=== PATIENT | female | born 2005 | race African-American/Black ===

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

== ENCOUNTER 2024-03-03 08:58 | Outpatient (REF) | payer OTHER, SELFPAY ==
[2024-03-06 15:34] LABS: TS Negative Control Passed; TS Panel A 0; TS Panel B 0; TS Positive Control Passed; TSpotTB Negative (Negative)
== END 2024-03-03 08:59 | disposition home or self-care (01) ==
LOC: HO.HHCL 08:58
PROVIDERS: Visit Provider Nurse Practitioner Primary Care
DX: Z11.1 Encounter for screening for respiratory tuberculosis (principal)
CPT/HCPCS: 36415; 86481

== ENCOUNTER 2024-08-09 16:37 | Outpatient (REF) | payer OTHER, SELFPAY ==
--- OUTSIDE RECORDS SUMMARY | 2024-08-09 17:58 | XMS_ITS | Encounter Summary ---
Author Organization [employer] Address [address] [facility] [address] [place] [address] Care Team Providers Care Electromechanical Assembly Technician Name Role Phone Lashawn Haney Primary Care Provider [phone] Reason for Visit * Reason Onset Date Comments Nurse Triage 08/09/2024 Encounter Details Date Type Department Care Team ([facility] st Contact Info) Description 08/09/2024 Telephone [facility] [address] [place] [address] Lashawn Haney ANP [address] [place] [address] Nurse Triage Social History Tobacco Use Types Packs/Day Years Used Date Smoking Tobacco: Never Passive Smoke Exposure: Never Smokeless Tobacco: Never Alcohol Use Standard Drinks/Week Comments Never 0 (1 standard drink = 0.6 oz pur e alcohol) Depression Answer Date Recorded Patient Health Questionnaire-9 Score 0 09/30/2023 Patient Health Questionnaire-9 Score 0 09/30/2023 Last PHQ-9: Questionnaire Data Not on file 0 09/30/2023 Housing Stability Answer Date Recorded What is your housing situation today? I have [address] 09/30/[address] you li ve. Do you have problems with any of the following? None of the above 09/30/2023 Food Insecurity Answer Date Recorded Within the past 12 months, y ou worried that your food would run out before you got money to buy more: Never True 09/30/2023 Within the past 12 months,th e food you bought just didn't last and you didn't have enough money to get more: Never True Transportation Answer Date Recorded In the past 12 months, has l ack of transportation kept you from medical appts, meetings, work or from getting things needed for daily living? No 09/30/2023 Utilities Answer Date Recorded In the past 12 months, has t he electric, gas, oil or water company threatened to shut off services in your home? No 09/30/2023 Depression Answer Date Recorded Patient Health Questionnaire-2 Score 0 09/30/2023 Comments No Sex and Gender Information Value Date Recorded Sex Assigned at Female 05/19/2022 10:19 AM EDT Legal Sex Female 10:19 AM EDT Gender Identity Choose not to disclose 10:19 AM EDT Sexual Orientation Choose not to disclose 2021 10:19 AM EDT documented as of this encounter Miscellaneous Notes * Telephone Encounter - Alda Storm RN - 08/09/2024 9:35 AM EST Call returned to Milo Ahmadi to triage below. Reports having vaginal discharge. No uti sx. Mild odor. No pelvic pain, nausea vomiting or fever. Pt denies any concern for STI. Sx onset was 3 days ago. PT advised of disposition, agrees to sick on site with CNM for exam. Protocol Used: Vaginal Discharge (Adult) Protocol-Based Disposition: See in Office or Video Visit within 3 Days Future Appointments Date Time Provider Department Center 08/09/2024 1:15 PM Mary Bragg CNM [facility] Insurance verified as active per Real Time Eligibility in [facility]. Positive Triage Question: * Symptoms of a yeast infection (i.e., itchy, white discharge, not bad smelling) and not improved > 3 days following Care Advice * All higher-acuity triage questions were negative Care Advice Discussed: * Reassurance and Education - Normal Vaginal Discharge * Reasons To Call Back - You become worse * Telephone Encounter - Jodi Yu - 08/09/2024 8:27 AM EST Symptom: Urine Symptoms (discharge) Outcome: Schedule a same-day appointment or talk to a nurse or provider today Reason: Caller denied all higher acuity questions The caller accepted this outcome. [phone] documented in this encounter Plan of Treatment Not on file documented as of this encounter Visit Diagnoses Not on filedocumented in this encounter Additional Health Concerns Assessment Noted Time PHQ-9 Depression Total Score: 0 09/30/19 24 2:31 PM EDT documented as of this encounter Care Teams Electromechanical Assembly Technician Relationship Specialty Start Date End Date Lashawn Haney ANP [address] [place] [phone] PCP - General Family Medicine 04/23/23 documented as of this encounter
--- OUTSIDE RECORDS SUMMARY | 2024-08-09 17:58 | XMS_ITS | Clinical Summary ---
Author Organization [email or web address] Address [address] [facility] [address] [place] [address] Care Team Providers Care Vertical Borer Name Role Phone Lashawn Haney LEATHA Primary Care Provider [phone] Allergies Active Allergy Reactions Criticality Noted Date Comments Cucurbita 10/22/2017 Pork Allergy 08/12/2022 Pumpkin Flavoring Agent (Non-Screening) 08/12/2022 Medications Occlusive Silicone Strips (KP Silicone Scar Therapy Gel) stripIndicatio ns:Abnormal scarring of skin 1 strip if needed each day (scarring). 8 strip 11 3 Active benzoyl peroxide 5 % external washIndication s:Mild acne 1 applic by topical route daily for acne 236 mL 1 4 Active clindamycin (Clindagel) 1 % gelIndications :Mild acne Apply topically Once daily. Must apply concomitantly with BP to prevent antimicrobial resistance 60 g 2 4 Active chlorhexidine (Peridex) 0.12 % solution SWISH AND SPIT WITH 15 ML IN THE MOUTH OR THROAT IF NEEDED IN THE MORNING, AT NOON, AND AT BEDTIME (PROPHYLAXIS) FOR UP TO 5 DAYS. 473 mL 4 Active tretinoin (Retin-A) 0.05 % creamIndicatio ns:Acne vulgaris Apply topically at bedtime. 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 Acne 10/22/2017 Encounters Date Type Department Care Team Description 08/09/2024 1:15 PM EST Office Visit [facility] [address] [place] [address] Mary Bragg, FRANCISCA Vaginal discharge (Primary Dx) 08/09/2024 Travel 08/09/2024 Telephone [facility] [address] [place], [place] [phone] Lashawn Haney ANP Nurse Triage 08/01/2024 Telephone [facility] [address] [place], [place] [phone] Ulises Segovia [place] September recall from Last 3 Months Immunizations Name Administration Dates Next Due DTaP 12/31/2007, 5,11/02/2004,03/01,2003 HPV 9-Valent 10/22/2017,05/10/2015 Hep A, ped/adol, 2 dose 05/06/2018,10/22/2017 Hep B, Adolescent or Pediatric 03/01/2004,2003,2003 Hib (HbOC) 12/31/2007, 5,03/01/2004,12/28,2003 IPV 12/31/2007, 5,02/29/2004,12/28,2003 Influenza injectable quadriv alent preservative free 09/02/2022,07/10/2020 MMR 12/31/2007,11/22/2004 Meningococcal MCV4P [id number]-135 09/11/2020,05/10/20 15 Pneumococcal Conjugate PCV 7 08/18/2005,06/18/20 05 Tdap 05/10/2015 Varicella 12/31/2007,03/21/2005 Social History Tobacco Use Types Packs/Day Years Used Date Smoking Tobacco: Never Passive Smoke Exposure: Never Smokeless Tobacco: Never Tobacco Cessation:Counseling Given: Not Answered Alcohol Use Standard Drinks/Week Comments Never 0 [...] not to disclose 2021 10:19 AM EDT Last Filed Vital Signs Vital Sign Reading Time Taken Comments Blood Pressure 120/83 08/09/2024 1:31 PM EST Pulse 99 08/09/2024 1:31 PM EST Temperature 36.4 ??C (97.6 ??F) 08/09/2024 1:31 PM ES T Respiratory Rate 20 08/09/2024 1:31 PM EST Oxygen Saturation 99% 08/09/2024 1:31 PM EST Inhaled Oxygen Concentration - - Weight 67 kg (147 lb 12.8 oz) 08/09/2024 1:31 PM EST Height 160 cm (5' 3 ) 08/09/2024 1:31 PM EST Body Mass Index 26.18 08/09/2024 1:31 PM EST Plan of Treatment Health Maintenance Due Date Last Done Comments Chlamydia and Gonorrhea Screening 2003 HIV Screening 2003 Alcohol/Substance Use Screening 2015 Hepatitis C Screening 2021 Dental Oral Exam 02/09/2023 08/11/2022 Dental Prophylaxis 02/09/2023 08/11/2022 Dental X-Ray: Bitewings 08/12/2023 08/11/2022 COVID-19 Vaccine ( season) 2024 Influenza Vaccine (#1) 2024 09/02/2022, 2019 Depression Screening 09/29/2024 09/30/2023, 09/30/19 24 SDOH Screening 09/29/2024 09/30/2023 Family Planning (PISQ) 02/02/2025 02/03/2024 DTaP/Tdap/Td Vaccines (7 - Td or Tdap) 05/10/2025 05/10/2015, 12/31/2007, 03/07/2005, Additional history exists Tobacco Screening 08/09/2025 08/09/2024 Dental X-Ray: Full Mouth 05/16/2026 05/15/2023 Zoster Vaccines (1 of 2) 2053 RSV Patients and Patients Aged 60 years or older (1 - 1-dose 75+ series) 2078 Hepatitis B Vaccines Completed 03/01/2004, 2003, 2003 Pneumococcal Vaccine: Pediatrics (0 to 5 Years) and At-Risk Patients (6 to 64 Years) Aged Out 08/18/2005, 06/18/2005 No longer eligibl e based on patient's age to complete this topic HIB Vaccines Completed 12/31/2007, 05/22, 03/01/2004, Additional history exists IPV Vaccines Completed 12/31/2007, 02/17, 02/29/2004, Additional history exists HPV Vaccines Completed 10/22/2017, 05/10/2015 Hepatitis A Vaccines Completed 05/06/2018, 10/23/19 18 Meningococcal Vaccine Completed 09/11/2020, 015 RSV under 20 months Aged Out No longe r eligible based on patient's age to complete this topic Rotavirus Vaccines Aged Out No longer eligible based on patient's age to complete this topic Procedures Procedure Name Priority Date/Time Associated Diagnosis Comments POCT WET MOUNT/KATLYN Routine 08/09/2024 2: 41 PM EST Vaginal discharge PANORAMIC RADIOGRAPHIC IMAGE Routine 05/15/2023 1:00 PM EDT PERIODIC ORAL EVALUATION - ESTABLISHED PATIENT Routine 08/11/2022 3:00 PM EST Full PROPHYLAXIS - ADULT Routine 08/11/2022 2:00 PM EST BITEWINGS - 4 RADIOGRAPHIC IMAGES Routine 08/11/2022 2:00 PM EST from Last 3 Months or Most Recently Relevant to Health Maintenance Results * POCT fern test, vaginal fluid manually resulted (08/09/2024 2:41 PM EST) KATLYN Prep Negative Comment:pH 4.5, neg whiff, n eg clue, neg trich, neg yeast, neg wbc Vaginal Fluid 08/09/2024 2:4 1 PM EST Impressions Mary Bragg CNM - 08/09/2024 2:41 PM EST No obvious vaginitis Mary Bragg CNM POINT OF CARE TEST ENTER/ EDIT ORDERABLES Final Result from Last 3 Months Insurance [employer] DENTAL - [place] PARTIAL (MEDICAID) [address] [place] [id number] [place] [address] Care Teams Vertical Borer Relationship Specialty Start Date End Date Lashawn Haney ANP [address] [place] [phone] PCP - General Family Medicine 04/23/23
--- OUTSIDE RECORDS SUMMARY | 2024-08-09 17:58 | XMS_ITS | Encounter Summary ---
Author Organization [employer] Address [address] [facility] 7t [place] [address] Care Team Providers Care Table Operator Name Role Phone Medina Lashawn ZHANG Primary Care Provider [phone] Reason for Visit * Reason Comments Gynecologic Exam Encounter Details Date Type Department Care Team ([facility] Contact Info) Description 08/09/2024 1:15 PM EST Office Visit [facility] MEDICINE [address] [place] [address] Mary Bragg CN [address] [place] [address] Vaginal discharge (Primary Dx) Social History Tobacco Use Types Packs/Day Years [...] AM EDT documented as of this encounter Last Filed Vital Signs Vital Sign Reading [...] Mass Index 26.18 08/09/2024 1:31 PM EST documented in this encounter Progress Notes * Mary Bragg CNM - 08/09/2024 1:15 PM EST Subjective Patient ID: Milo Ahmadi is a 18 y.o. adult who presents for vaginal symptoms Treated for yeast 01/2024. Last sexually active 05/2024. Had neg Gonorrhea/Chlamydia/trichomonas testing after that. Notes some vaginal discharge recently, no itch/odor, no urinary symptoms. Not planning in the next year, no current partner. Has used new body products recently. Review of Systems Constitutional: Negative for chills and fever. Genitourinary: Positive for vaginal discharge. Negative for dysuria, menstrual problem, pelvic pain, vaginal bleeding and vaginal pain. Objective BP 120/83 (BP Location: Left arm, Patient Position: Sitting, BP Cuff Size: Adult) Pulse 99 Temp97.6 ??F (36.4 ??C) (Temporal) Resp 20 Ht 5' 3 (1.6 m) Wt 147 lb 12.8 oz (67 kg) LMP 08/02/2024 (Exact Date) SpO2 99% BMI 26.18 kg/m?? Physical Exam Constitutional: Appearance: Normal appearance. Genitourinary: General: Normal vulva. Labia: Right: No rash, tenderness, lesion or injury. Left: No rash, tenderness, lesion or injury. Vagina: Normal. No signs of injury and foreign body. No vaginal discharge, erythema, tenderness, bleeding, lesions or prolapsed vaginal coyne. Cervix: No discharge, friability, lesion, erythema or cervical bleeding. Comments: Bimanual deferred Neurological: Mental Status: [place] is alert. Psychiatric: Mood and Affect: Mood normal. Behavior: Behavior normal. Assessment/Plan Diagnoses and all orders for this visit: Vaginal discharge - Bacterial Vaginosis Panel - POCT fern test, vaginal fluid manually resulted No obvious vaginitis on wet mount. Will send bacterial vaginosis swab and contact with results. Aware of EC/condoms, may contact office any time if interested in control or STI testing. Pap at 21. documented in this encounter Plan of Treatment Scheduled Orders Name Type Priority Associated Diagnoses Orde r Schedule Bacterial Vaginosis Panel Microbiology Routine Vaginal discharge Ordered: 08/09/2024 documented as of this encounter Procedures Procedure Name Priority Date/Time Associated Diagnosis Comments POCT WET MOUNT/KATLYN Routine 08/09/2024 2: 41 PM EST Vaginal discharge documented in this encounter Results * POCT fern test, vaginal fluid manually resulted (08/09/2024 2:41 PM EST) KATLYN Prep Negative Comment:pH 4.5, neg whiff, n eg clue, neg trich, neg yeast, neg wbc Vaginal Fluid 08/09/2024 2:4 1 PM EST Impressions Mary Bragg CNM - 08/09/2024 2:41 PM EST No obvious vaginitis Mary Bragg CNM POINT OF CARE TEST ENTER/ EDIT ORDERABLES Final Result documented in this encounter Visit Diagnoses Diagnosis Vaginal discharge- Primary Leukorrhea, not specified as infective documented in this encounter Additional Health Concerns Assessment Noted Time PHQ-9 Depression Total Score: 0 09/30/19 24 2:31 PM EDT documented as of this encounter Care Teams Table Operator Relationship Specialty Start Date End Date Lashawn Haney ANP [address] [place] [address] PCP - General Family Medicine 04/23/23 documented as of this encounter
--- OUTSIDE RECORDS SUMMARY | 2024-08-09 17:58 | XMS_ITS | Encounter Summary ---
Author Organization [employer] Address [address] [facility] 7t [place] [address] Care Team Providers Care Art Display Maker Name Role Phone Medina Lashawn ZHANG Primary Care Provider [phone] Reason for Visit * Reason Comments Med Refill Encounter Details Date Type Department Care Team ([facility] st Contact Info) Description 12/07/2023 Refill [facility] ADULT DENTAL [address] [place] [address] Naun Mcdonald, DMD [address] [place] [address] Social History Tobacco Use Types Packs/Day Years Used Date Smoking Tobacco: Never Passive Smoke Exposure: Never Smokeless Tobacco: Never Depression Answer Date Recorded Patient Health Questionnaire-9 [...] Patient Health Questionnaire-2 Score 0 09/30/2023 Comments Unknown Sex and Gender Information Value Date Recorded Sex Assigned at Female 05/19/2022 10:19 AM EDT Legal Sex Female 10:19 AM EDT Gender Identity Choose not to disclose 10:19 AM EDT Sexual Orientation Choose not to disclose 2021 10:19 AM EDT documented as of this encounter Miscellaneous Notes * Telephone Encounter - Naun Mcdonald DMD - 12/07/2023 2:22 PM EDT Approving, but needs appt for additional refills. documented in this encounter Plan of Treatment Not on file documented as of this encounter Visit Diagnoses Not on filedocumented in this encounter Additional Health Concerns Assessment Noted Time PHQ-9 Depression Total Score: 0 09/30/19 24 2:31 PM EDT documented as of this encounter Care Teams Art Display Maker Relationship Specialty Start Date End Date Lashawn Haney ANP [address] [place] [address] PCP - General Family Medicine 04/23/23 documented as of this encounter
--- OUTSIDE RECORDS SUMMARY | 2024-08-09 17:58 | XMS_ITS | Encounter Summary ---
Author Organization [employer] Address [address] [facility] [address] [address] [place] [address] Care Team Providers Care Retail Services Professional Name Role Phone Lashawn Haney LEATHA Primary Care Provider [phone] Encounter Details Date Type Department Care Team (Latest Contact Info) Description 08/09/2024 Travel Social History Tobacco Use Types Packs/Day Years [...] AM EDT documented as of this encounter Plan of Treatment Not on file documented as of this encounter Visit Diagnoses Not on filedocumented in this encounter Additional Health Concerns Assessment Noted Time PHQ-9 Depression Total Score: 0 09/30/19 24 2:31 PM EDT documented as of this encounter Care Teams Retail Services Professional Relationship Specialty Start Date End Date Lashawn Haney ANP [address] [place] [id number] PCP - General Family Medicine 04/23/23 documented as of this encounter
--- OUTSIDE RECORDS SUMMARY | 2024-08-09 17:58 | XMS_ITS | Encounter Summary ---
Author Organization [employer] Address [address] [facility] 7[address] [place] [address] Care Team Providers Care Chief Engineer'S Helper Name Role Phone Lashawn Haney LEATHA Primary Care Provider [phone] Reason for Visit * Reason Onset Date Comments September recall 08/01/2024 Encounter Details Date Type Department Care Team ([facility] st Contact Info) Description 08/01/2024 Telephone [facility] MEDICINE [address] [place] [address] Ulises Segovia [place] September recall Social History Tobacco Use Types Packs/Day Years [...] encounter Miscellaneous Notes * Telephone Encounter - Ulises Segovia [place] - 08/01/2024 4:17 PM EST T/C to pt to schedule a recall pe due after 09/29/24. No answer LVM to call clinic to schedule appt.Mailed recall letter. documented in this encounter Plan of Treatment Not on file documented as of this encounter Visit Diagnoses Not on filedocumented in this encounter Additional Health Concerns Assessment Noted Time PHQ-9 Depression Total Score: 0 09/30/19 24 2:31 PM EDT documented as of this encounter Care Teams Chief Engineer'S Helper Relationship Specialty Start Date End Date Lashawn Haney ANP [address] [place] [address] PCP - General Family Medicine 04/23/23 documented as of this encounter
--- OUTSIDE RECORDS SUMMARY | 2024-08-09 17:58 | XMS_ITS | Encounter Summary ---
Author Organization [employer] Address [address] [facility] 7t [place] [address] Care Team Providers Care Machining Associate Name Role Phone Lashawn Haney Primary Care Provider Encounter Details Date Type Department Care Team ([facility] st Contact Info) Description 02/01/2024 Telephone [facility] MEDICINE [address] [place] [address] Lashawn Haney ANP [address] [place] [address] Social History Tobacco Use Types Packs/Day Years [...] documented as of this encounter Care Teams Machining Associate Relationship Specialty Start Date End Date Lashawn Haney ANP [address] [place] [id number] PCP - General Family Medicine 04/23/23 documented as of this encounter
[2024-08-10 13:46] LABS: Bacterial Vaginosis PCR NEGATIVE (Negative); Candida Group PCR DETECTED (Not Detect); Candida glab krusei PCR NOT DETECTED (Not Detect); Trichomonas vaginalis PCR NOT DETECTED (Not Detect)
== END 2024-08-09 16:38 | disposition home or self-care (01) ==
LOC: HO.HHCLNP 16:37
PROVIDERS: Visit Provider Advanced Practice Midwife
DX: N89.8 Other specified noninflammatory disorders of vagina (principal)
CPT/HCPCS: 81515

== ENCOUNTER 2025-02-09 12:05 | Outpatient (REF) | payer OTHER, SELFPAY ==
--- OUTSIDE RECORDS SUMMARY | 2025-02-09 12:42 | XMS_ITS | Clinical Summary ---
Author Organization [employer] Address [address] [facility] 7t [place] [address] Care Team Providers Care Barkeep Name Role Phone Lashawn Haney LEATHA Primary Care Provider [phone] Allergies Active Allergy Reactions Criticality Noted Date Comments Cucurbita 10/22/2017 Pork Allergy 08/12/2022 Pumpkin Flavoring Agent (Non-Screening) 08/12/2022 Medications Occlusive Silicone Strips (KP Silicone Scar Therapy Gel) stripIndicatio ns:Abnormal scarring of skin 1 strip if needed each day (scarring). 8 strip 11 3 Active Additional Information Patient not taking.Reason: pt states not taking, Reported on 01/09/2025 benzoyl peroxide 5 % external washIndication s:Mild acne 1 applic by topical route daily for acne 236 mL 1 4 Active Additional Information Patient not taking.Reason: pt states not taking, Reported on 01/09/2025 clindamycin (Clindagel) 1 % gelIndications :Mild acne Apply topically Once daily. Must apply concomitantly with BP to prevent antimicrobial resistance 60 g 2 4 Active Additional Information Patient not taking.Reason: pt states not taking, Reported on 01/09/2025 chlorhexidine (Peridex) 0.12 % solution SWISH AND SPIT WITH 15 ML IN THE MOUTH OR THROAT IF NEEDED IN THE MORNING, AT NOON, AND AT BEDTIME (PROPHYLAXIS) FOR UP TO 5 DAYS. 473 mL 4 Active Additional Information Patient not taking.Reason: pt states not taking, Reported on 01/09/2025 fluconazole (Diflucan) 150 MG tabletIndicati ons:Radha vaginitis Take 1 tablet (150 mg) by mouth 1 (one) time for 1 dose. 1 tablet 5 02/10/20 25 Active Active Problems Problem Noted Date Diagnosed Date Radha vaginitis 02/09/2025 Assessment & Plan (02/09/2025 11:43 AM EDT): KATLYN positive Pt with c/o white vaginal discharge Plan: Diflucan Sent also GC Chlamydia abd BV panel Blood in urine 02/09/2025 Assessment & Plan (02/09/2025 11:49 AM EDT): Pt tells me she is awaiting her period Pt to have a repeat next time when she sees her PCP Dental caries 01/09/2025 Split ear lobe 08/12/2022 Acne 10/22/2017 Encounters Date Type Department Care Team Description 02/09/2025 10:30 AM EDT Office Visit [facility] MEDICINE [address] [place] [id number] Maldonado Roy MD Radha vaginitis (Primary Dx); Routine physical examination; Other microscopic hematuria 02/09/2025 Travel 02/08/2025 Telephone [facility] [address] [place] [address] Dulce Lockett MA 02/02/2025 9:00 AM EDT Office Visit [facility] ADULT DENTAL [address] [place] [address] Naun Mcdonald DMD 02/02/2025 Patient Outreach [facility] [address] [place] [address] Lashawn Haney ANP Pre-visit Planning (SDOH will need to be completed in office. ) 01/09/2025 2:00 PM EDT Office Visit [facility] ADULT DENT[facility] [address] [place] [address] Shilpa Asher Dental caries (Primary Dx); Dental plaque from Last 3 Months Immunizations Immunization Administration Dates Next Due DTaP 12/31/2007, 5,11/02/2004,03/01,2003 [...] Date Recorded Patient Health Questionnaire-9 Score 0 02/09/2025 Patient Health Questionnaire-9 Score 0 02/09/2025 Last PHQ-9: Questionnaire Data Not on file 0 02/09/2025 Housing Stability Answer Date Recorded What is your housing situation today? I have [facility] 02/09/[address] you li ve. Do you have problems with any of the following? None of the above 02/09/2025 Food Insecurity Answer Date Recorded Within the past 12 months, y ou worried that your food would run out before you got money to buy more: Never True 02/09/2025 Within the past 12 months,th e food you bought just didn't last and you didn't have enough money to get more: Never True Transportation Answer Date Recorded In the past 12 months, has l ack of transportation kept you from medical appts, meetings, work or from getting things needed for daily living? No 02/09/2025 Utilities Answer Date Recorded In the past 12 months, has t he electric, gas, oil or water [employer] threatened to shut off services in your home? No 02/09/2025 Depression Answer Date Recorded Patient Health Questionnaire-2 Score 0 02/09/2025 Internet Access Answer Date Recorded Internet Access Q1 Yes 02/09/2025 Internet Access Q2 Not on file 02/09/2025 Comments No Sex and Gender Information Value Date Recorded Sex Assigned at Female 05/19/2022 10:19 AM EDT Legal Sex Female 10:19 AM EDT Gender Identity Choose not to disclose 10:19 AM EDT Sexual Orientation Choose not to disclose 2021 10:19 AM EDT Last Filed Vital Signs Vital Sign Reading Time Taken Comments Blood Pressure 118/78 02/09/2025 10:49 AM EDT Pulse 93 02/09/2025 10:49 AM EDT Temperature 37.2 C (98.9 F) 02/09/2025 10:49 AM EDT Respiratory Rate 20 02/09/2025 10:49 AM EDT Oxygen Saturation 99% 02/09/2025 10:49 AM EDT Inhaled Oxygen Concentration - - Weight 63 kg (139 lb) 02/09/2025 10:49 AM EDT Height 160 cm (5' 3 ) 02/09/2025 10:49 AM EDT Body Mass Index 24.62 02/09/2025 10:49 AM EDT Plan of Treatment Upcoming Encounters Date Type Department Care Team (Late st Contact Info) Description 07/17/2025 3:00 PM EST Office Visit [facility] ADULT DENTAL [address] [place] [address] Lb, Shilpa [address] [place] [address] Health Maintenance Due Date Last Done Comments Chlamydia and Gonorrhea Screening 2003 HIV Screening 2003 Family Planning (PISQ) 2018 Meningococcal B Vaccine (1 of 2 - Standard) 2019 Hepatitis C Screening 2021 COVID-19 Vaccine (1 - season) 2024 Pap Smear 2024 Influenza Vaccine (#1) 2025 09/02/2022, 2019 DTaP/Tdap/Td Vaccines (7 - Td or Tdap) 05/10/2025 05/10/2015, 12/31/2007, 03/07/2005, Additional history exists Dental Oral Exam 07/12/2025 01/09/2025, 08/11/2022 Dental Prophylaxis 07/12/2025 01/09/2025, 08/11/2022 Dental X-Ray: Bitewings 01/10/2026 01/09/2025, 08/11 Tobacco Screening 02/02/2026 02/02/2025 Alcohol/Substance Use Screening 02/09/2026 02/09/2025 Depression Screening 02/09/2026 02/09/2025, 02/10/20 25 Disability Screening 02/09/2026 02/09/2025 SDOH Screening 02/09/2026 02/09/2025 Dental X-Ray: Full Mouth 05/16/2026 05/15/2023 Zoster Vaccines (1 of 2) 2053 RSV Patients and Patients Aged 60 years or older (1 - 1-dose 75+ series) 2078 Hepatitis B Vaccines Completed 03/01/2004, 2003, 2003 Pneumococcal Vaccine: Pediatrics (0 to 5 Years) and At-Risk Patients (6 to 49) Years Aged Out 08/18/2005, 06/18/2005 No longer eligibl [...] Name Priority Date/Time Associated Diagnosis Comments POCT GLYCATED HEMOGLOBIN, TOTAL Routine 02/09/2025 11:50 AM EDT Routine physical examination 18 O RESIN-BASED COMPOSITE - 1 SURF, POSTERIOR Routine 02/02/2025 9:00 AM EDT PERIODIC ORAL EVALUATION - ESTABLISHED PATIENT Routine 01/09/2025 2:00 PM EDT INTRAORAL - PERIAPICAL EACH ADDITIONAL RADIOGRAPHIC IMAGE Routine 01/09/2025 2:00 PM EDT Dental caries Dental plaque INTRAORAL - PERIAPICAL FIRST RADIOGRAPHIC IMAGE Routine 01/09/2025 2:00 PM EDT Dental caries Dental plaque ORAL HYGIENE INSTRUCTIONS Routine 01/09/2025 2:00 PM EDT Dental caries Dental plaque BITEWINGS - 4 RADIOGRAPHIC IMAGES Routine 01/09/2025 2:00 PM EDT Dental caries Dental plaque Full PROPHYLAXIS - ADULT Routine 01/09/2025 2:00 PM EDT Dental caries Dental plaque PANORAMIC RADIOGRAPHIC IMAGE Routine 05/15/2023 1:00 PM EDT from Last 3 Months or Most Recently Relevant to Health Maintenance Results * POCT A1C (02/09/2025 11:50 AM EDT) Hemoglobin A1C 5.1 4.0 - 5.7 % Blood 02/09/2025 11:5 0 AM EDT Maldonado Michael MD POINT OF CARE TEST EN TER/EDIT ORDERABLES Final Result from Last [address] [place] [address] [address] [place] [address] [employer] [facility] [place] [address] Care Teams Barkeep Relationship Specialty Start Date End Date Lashawn Haney ANP [address] [place] [address] PCP - General Family Medicine 04/23/23
--- OUTSIDE RECORDS SUMMARY | 2025-02-09 12:42 | XMS_ITS ---
Author Name [facility] Results Test Name/Text Value Interpretation Date Range Source COMMENT Normal 06/12/2024 [facility] gonorrhoea rRNA Spec Ql SHAWANDA+probe NOT DETECTED Normal 06/12/2024 - [facility] trach rRNA Spec Ql SHAWANDA+probe NOT DETECTED Normal 2023 - [facility] vaginalis rRNA Spec Ql SHAWANDA+probe NOT DETECTED Normal 06/12/2024 - [facility] RPR Ser Ql NON-REACTIVE Normal 06/11/2024 - [facility] HBV surface Ag SerPl Ql IA NON-REACTIVE Normal 06/11/2024 - [facility] HBV core Ab SerPl Ql IA NON-REACTIVE Normal 06/11/2024 - [facility] HCV Ab SerPl Ql IA NON-REACTIVE Normal 06/11/2024 - [facility] HIV 1+2 Ab+HIV1 p24 Ag SerPl Ql IA NON-REACTIVE Normal 06/11/2024 - [facility]
[2025-02-09 13:40] LABS: Hemoglobin A1C 93.4402 umol/L; Total Hemoglobin (HGBA1C) 3124.9187 umol/L
[2025-02-09 14:01] LABS: HIV Num 1 0.05 S/CO (0.00-0.99)
== END 2025-02-09 12:06 | disposition home or self-care (01) ==
LOC: HO.HHCL 12:05
PROVIDERS: Advanced Practice Midwife; PCP Nurse Practitioner Primary Care; Visit Provider Internal Medicine
DX: Z00.00 Encounter for general adult medical examination without abnormal findings (principal); Z13.1 Encounter for screening for diabetes mellitus; B37.31 Acute candidiasis of vulva and vagina
CPT/HCPCS: 36415; 83036; 87389

== ENCOUNTER 2025-02-09 16:37 | Outpatient (REF) | payer OTHER, SELFPAY ==
[2025-02-09 20:11] LABS: Bacterial Vaginosis PCR NEGATIVE (Negative); Candida Group PCR DETECTED (Not Detect); Candida glab krusei PCR NOT DETECTED (Not Detect); Trichomonas vaginalis PCR NOT DETECTED (Not Detect)
[2025-02-09 21:20] LABS: CT PCR NOT DETECTED (Not Detect.); NG PCR NOT DETECTED (Not Detect.)
== END 2025-02-09 16:38 | disposition home or self-care (01) ==
LOC: HO.HHCLNP 16:37
PROVIDERS: Visit Provider Internal Medicine
DX: Z00.00 Encounter for general adult medical examination without abnormal findings (principal); Z11.4 Encounter for screening for human immunodeficiency virus [HIV]; Z13.1 Encounter for screening for diabetes mellitus; B37.31 Acute candidiasis of vulva and vagina
CPT/HCPCS: 81515; 87491; 87591; 88175

== ENCOUNTER 2025-02-22 17:08 | Outpatient (REF) | payer OTHER, SELFPAY ==
[2025-02-23 09:21] LABS: Bacterial Vaginosis PCR NEGATIVE (Negative); Candida Group PCR NOT DETECTED (Not Detect); Candida glab krusei PCR NOT DETECTED (Not Detect); Trichomonas vaginalis PCR NOT DETECTED (Not Detect)
== END 2025-02-22 17:09 | disposition home or self-care (01) ==
LOC: HO.LNP 17:08
DX: B37.31 Acute candidiasis of vulva and vagina (principal)
CPT/HCPCS: 81515